=== PATIENT | male | born 1955 | race Caucasian/White ===

== ENCOUNTER → 2020-05-03 | Outpatient (CLI) | payer OTHER ==
[~2020-05-03] MED LIST: AMBEREN PO; ASPIRIN325 PO; AVELOX400 MG PO; FISH OIL 1,0001 EAC5 PO; FISHOIL PO; FLEXERIL PO; GLUCOSAMINE &1 EAC1 PO; GLUCOSE4 GM PO; IBUPROFEN 200200 M1 PO; MOBIC15 MG PO; MUCINEX600 MG PO; MULTIVITAMINS PO; NORCO 5-325 TA1 EACH PO; TURMERIC500 M2 PO; TYLENOL EX-STR500 M2 PO; ZPAK; ZYRTEC10 M4 PO
== END ==
LOC: MRI 07:14
PROVIDERS: ATTEND Family Medicine
DX: M47.816 Spondylosis without myelopathy or radiculopathy, lumbar region (principal); M51.26 Other intervertebral disc displacement, lumbar region; M54.9 Dorsalgia, unspecified; N28.1 Cyst of kidney, acquired

== ENCOUNTER → 2020-05-12 | Outpatient (CLI) | payer OTHER ==
[~2020-05-12] VITALS: Ht 188 cm; Wt 116.1 kg
--- NOTE | ~2020-05-12 | HPC ---
[facility] [address] [place] [address] PAIN MANAGEMENT CONSULTATION Name: TENA HOLLAND Room #: REG [facility]#: [id number] Admission: 05/12/20 Attend Phys: Lay Guadarrama MD Discharge: Date of : 55 Report #: [id number] THIS REPORT FOR: cc: Casey Valentine MD,Lay Daugherty MD, MD ~ CC: Lay Valentine DATE OF SERVICE: 05/12/2020 PRIMARY CARE PHYSICIAN: Casey Valentine MD CHIEF COMPLAINT: "Acute pain in the lower right back and sometimes tingling down in my right leg." HISTORY: The patient is a 64-year-old gentleman who has been referred to the pain clinic for evaluation of leg and back discomfort. He noted onset of this discomfort in February. He rates the pain as 3 today. It can average anywhere from 1-5 depending on the level of activity. Standing for greater than 20 minutes can be problematic. He notes that the pain is better when he uses ice on it. Reclining decreases the pain as well. He describes it as continuous, aching pain. He has not had back surgery. He denies any bowel or bladder changes. Pain involves the right posterior buttocks and radiates down the lateral portion of his right thigh. ALLERGIES: PENICILLIN. CURRENT MEDICATIONS: Fish oil 1000 mg, turmeric 800 mg, glucosamine 1500 mg, aspirin 325, meloxicam 15 mg, cetirizine. PAST SURGICAL HISTORY: Three knee surgeries 35-45 years ago, right ankle surgery, 50 years ago, nose surgery 45 years ago. SOCIAL HISTORY: He works in [employer]. He is on ____ for the last 2 months. REVIEW OF SYSTEMS: Generally good health. LABORATORY DATA: 1. MRI of the lumbar spine dated 05/03/2020, L2-L3, there is generalized disk bulge with severe hypertrophic posterior facet degenerative change and ligamentum flavum hypertrophy. The AP dimensions of the thecal sac measures 9 mm consistent with mild spinal stenosis. The disk bulge is slightly more eccentric toward the left. No significant neural foraminal narrowing. 2. L3-L4, there is a generalized disk bulge with severe hypertrophic posterior facet degenerative changes and ligamentum flavum hypertrophy. AP diameter of [address] [address] PAIN MANAGEMENT CONSULTATION Name: TENA HOLLAND Room #: REG BAILEE Lacey#: [id number] Admission: 05/12/20 Attend Phys: Lay Guadarrama MD Discharge: Date of : 55 Report #: [id number] the thecal sac is narrowed to 5 mm consistent with very severe spinal canal stenosis. The bulging is slightly more eccentric toward the left. 3. L4-L5, there is a generalized disk bulge with severe hypertrophic facet degenerative changes and ligamentum flavum hypertrophy. The AP dimension of the thecal sac is narrowed to 5-6 mm consistent with very severe central canal stenosis. 4. There is a focal left paracentral disk protrusion which results in severe left lateral recess narrowing and mass effect on the descending left L5 nerve root sleeve. The bulge is eccentric toward the left. There is severe left neural foraminal narrowing. 5. L5-S1, there is a broad-based central disk protrusion with focal annular tear. Moderate posterior facet degenerative changes. No significant central spinal stenosis. PAIN CLINIC ASSESSMENT AND PQRS: 1. History of osteoarthritis involving the wrists, knees, ankles and spine. The patient is not being treated for rheumatoid arthritis. 2. Height 6 feet 2 inches, weight 256 pounds, BMI is 32.9. 3. Vital signs: Blood pressure 156/100, pulse is 90, respiratory rate 15, room air saturation is 96%. 4. Pain intensity 11/17. 5. Fall risk. The patient fell playing with grandchildren in March, had x-ray, no fracture. 6. The patient is not on a blood thinning medication. 7. Hypertension. The patient is not being treated for hypertension. 8. Opioids greater than 6 weeks. The patient receives medication from primary. 9. Risk assessment tool, low for opioid use. 10. Functional assessment tool, 46/70. 11. Recreational drug use. The patient denies. 12. Alcohol. The patient occasionally drinks alcoholic beverages. PHYSICAL EXAMINATION: GENERAL: The patient is a well-developed, well-nourished white male. He is alert and oriented x 3. His affect is appropriate. Speech is fluent. HEENT: Normocephalic, atraumatic. Extraocular eye muscles intact. Sclerae nonicteric. Mucous membranes are moist. NECK: Without adenopathy or JVD. HEART: Regular rate. ABDOMEN: Nontender. EXTREMITIES: Upper extremity muscle strength judged to be 5/5 for the major muscle groups in the upper extremity. The patient is wearing a facial covering. The patient has pain and discomfort in lower portion of his back with pain that is radiating down in the L4-L5 dermatomal distribution on the right. IMPRESSION: Lumbar radiculopathy, L4-L5 dermatomal distribution on the right. [facility] [address] [place] [address] PAIN MANAGEMENT CONSULTATION Name: TENA HOLLAND Room #: REG BAILEE Lacey#: [id number] Admission: 05/12/20 Attend Phys: Lay Guadarrama MD Discharge: Date of : 55 Report #: [id number] RECOMMENDATIONS: We discussed risks and benefits of an epidural steroid injection. A model was used to indicate the area of probable pathology. A video indicating of the patient of the pathophysiology of spinal stenosis was shown. The patient states that he understands. We discussed the risks and benefits of an epidural steroid injection. They include but are not limited to infection, worsening pain, no improvement in pain, nerve damage, bleeding, spinal headache. We also discussed the COVID-19 pandemic. The possibility exists that if he were to become infected, he might have a more difficult time with it, given that steroids use can decrease the immune response. The patient elects to proceed. PROCEDURE NOTE: The patient was taken to the procedure area. He was then assisted in getting on the examination table. His back was sterilely prepped with a Betadine solution. At the L4-L5 interspace 0.25% bupivacaine was infiltrated using a 25-gauge needle to anesthetize the area. A total of 80 mg Depo-Medrol was injected after a 17-gauge Tuohy with loss of resistance technique was used to gain access at L4-L5. The patient tolerated the procedure well. There were no complications. He remained in the pain clinic for an appropriate amount of time. He will follow up in the future as needed. We would like to thank you for letting us participate in his care. A total of 13 seconds fluoro time was used. The patient's pain decreased to 0-1 at the time of discharge. By: [id number] Lay Guadarrama MD /[place]
[2020-05-12 12:46] VITALS: BP 156/100
--- NOTE | 2020-05-12 12:58 | NUR ---
Pain Clinic Assessment: 1. History of Osteoarthritis: WRIST KNEES ANKLES SPINE History of Rheumatoid Arthritis: DENIES 2. Height: 6 ft. 2 in. 188.0 cm. Weight: 256.0 lb. oz. 116.121 kg. Patient's BMI: 32.9 3. Vital Signs: BP: 156/100 Pulse: 90 Resp: 15 Temp: 02 Sat: 96 ECG Mon: 4. Pain Intensity: 3 5. Fall Risk: Dizziness: N Needs help standing or walking: N Fallen in the last 3 months: N Fall risk comments: FELL PLAYING WITH [employer] [employer] IN MARCH. HAD XRAY. NO FX 6. Patient on Blood Thinner: None 7. History of Hypertension: N 8. Opioid Therapy greater than 6 weeks: N Opiate Contract Signed: 9. Risk Assessment Tool Provided: 0 LOW 10. Functional Assessment Tool: 11. Recreational Drug Use: Never Drug Type: Tobacco Use: Never Smoker Tobacco Type: Amount or Packs/day: How Many Years: Alcohol Use: Yes Frequency: Weekly Quant:
== END | disposition home or self-care (01) ==
LOC: PAIN 06:58
PROVIDERS: ATTEND Anesthesiology Pain Medicine
DX: M54.16 Radiculopathy, lumbar region (principal); M19.90 Unspecified osteoarthritis, unspecified site; I10 Essential (primary) hypertension; Z79.899 Other long term (current) drug therapy; Z98.890 Other specified postprocedural states; Z79.82 Long term (current) use of aspirin; Z72.89 Other problems related to lifestyle

== ENCOUNTER → 2020-07-09 | Outpatient (CLI) | payer OTHER ==
[~2020-07-09] VITALS: Ht 188 cm; Wt 118.2 kg
[2020-07-09 13:02] VITALS: BP 138/88
--- NOTE | 2020-07-09 13:20 | NUR ---
Pain Clinic Assessment: 1. History of Osteoarthritis: WRIST KNEES ANKLES SPINE History of Rheumatoid Arthritis: DENIES 2. Height: 6 ft. 2 in. 188.0 cm. Weight: 260.6 lb. oz. 118.208 kg. Patient's BMI: 33.4 3. Vital Signs: BP: 138/88 Pulse: 86 Resp: 16 Temp: 02 Sat: 100 ECG Mon: 4. Pain Intensity: 3 5. Fall Risk: Dizziness: N Needs help standing or walking: N Fallen in the last 3 months: N Fall risk comments: FELL PLAYING WITH [employer] IN MARCH. HAD XRAY. NO FX 6. Patient on Blood Thinner: None 7. History of Hypertension: N 8. Opioid Therapy greater than 6 weeks: N Opiate Contract Signed: 9. Risk Assessment Tool Provided: 0 LOW 10. Functional Assessment Tool: 11. Recreational Drug Use: Never Drug Type: Tobacco Use: Never Smoker Tobacco Type: Amount or Packs/day: How Many Years: Alcohol Use: Yes Frequency: Quant:
== END | disposition home or self-care (01) ==
LOC: PAIN 07:09
PROVIDERS: ATTEND Anesthesiology Pain Medicine
DX: M54.16 Radiculopathy, lumbar region (principal); G89.29 Other chronic pain; Z79.899 Other long term (current) drug therapy; Z88.0 Allergy status to penicillin

== ENCOUNTER → 2020-10-22 | Outpatient (CLI) | payer OTHER ==
[~2020-10-22] VITALS: Ht 195.6 cm; Wt 118.8 kg
[2020-10-22 12:52] VITALS: BP 163/103
--- NOTE | 2020-10-22 12:58 | NUR ---
Pain Clinic Assessment: 1. History of Osteoarthritis: WRIST KNEES ANKLES SPINE History of Rheumatoid Arthritis: DENIES 2. Height: 6 ft. 5 in. 195.6 cm. Weight: 262.0 lb. oz. 118.843 kg. Patient's BMI: 31.1 3. Vital Signs: BP: 163/103 Pulse: 99 Resp: 18 Temp: 02 Sat: 94 ECG Mon: 4. Pain Intensity: 3 5. Fall Risk: Dizziness: N Needs help standing or walking: N Fallen in the last 3 months: N Fall risk comments: FELL PLAYING WITH [employer] IN MARCH. HAD XRAY. NO FX 6. Patient on Blood Thinner: None 7. History of Hypertension: N 8. Opioid Therapy greater than 6 weeks: N Opiate Contract Signed: 9. Risk Assessment Tool Provided: 0 LOW 10. Functional Assessment Tool: 11. Recreational Drug Use: Never Drug Type: Tobacco Use: Never Smoker Tobacco Type: Amount or Packs/day: How Many Years: Alcohol Use: Yes Frequency: Weekly Quant: 2-3/BEER WEEK
== END | disposition home or self-care (01) ==
LOC: PAIN 12:09
PROVIDERS: ATTEND Anesthesiology Pain Medicine
DX: M47.26 Other spondylosis with radiculopathy, lumbar region (principal); G89.29 Other chronic pain; M19.90 Unspecified osteoarthritis, unspecified site; Z98.890 Other specified postprocedural states; Z79.899 Other long term (current) drug therapy; Z88.0 Allergy status to penicillin; Z88.8 Allergy status to other drugs, medicaments and biological substances

== ENCOUNTER → 2020-12-16 | Outpatient (CLI) | payer OTHER ==
[~2020-12-16] MED LIST changes: +BYSTOLIC 5 MG5 MG PO; +GLUCOSAMINE CH1 EAC1 PO; +HYDROCODON-ACE1 EAC7 PO; +MELOXICAM15 MG PO; +MULTI VITAMIN1 EACH PO; +NEURONTIN300 MG PO
[2020-12-16 08:57] LABS: URINE BILIRUBIN NEGATIVE (Negative); URINE BLOOD NEGATIVE (Negative); URINE CLARITY CLEAR; URINE COLOR YELLOW; URINE GLUCOSE-RANDOM* 3+ (Negative); URINE KETONES NEGATIVE (Negative); URINE LEUKOCYTES-REFLEX NEGATIVE (Negative); URINE NITRITE-REFLEX NEGATIVE (Negative); URINE PROTEIN (DIPSTICK) NEGATIVE (Negative); URINE UROBILINOGEN 0.2 E.U./dl (0.2-1.0)
[2020-12-16 08:58] LABS: HEMATOCRIT 47.3 % (42.0-52.0); MCH 29.7 pg (26.0-34.0); MCHC 33.9 g/dL (28.0-37.0); MCV 87.5 fL (80.0-100.0); RBC 5.4 mil/uL (4.50-6.00); RDW 13.8 % (10.5-14.5); WBC 9.8 thou/uL (4.0-11.0)
[2020-12-16 09:18] LABS: APTT 28.1 Seconds (24.5-32.8); INR 0.98; PROTIME 10.7 Seconds (9.3-11.4)
[2020-12-16 10:48] LABS: ALBUMIN 3.7 g/dL (3.4-5.0); CALCIUM 8.8 mg/dL (8.5-10.1); CREATININE 1.3 mg/dL (0.7-1.3); POTASSIUM 4.1 mmol/L (3.5-5.1); TOTAL BILIRUBIN 0.6 mg/dL (0.2-1.0); TOTAL PROTEIN 7.4 g/dL (6.4-8.2)
--- NOTE | 2020-12-16 15:29 | EKG ---
[address] [address] ELECTROCARDIOGRAM REPORT Name: MAURILIO HOLLAND [id number] Admission: 12/16/20 Attend Phys: Maurilio Li, Discharge: Date of : 55 Report #: [id number] [facility] Test Date: 2020-12-16 Test Time: 08:54:13 Pat Name: MAURILIO HOLLAND Department: Room: Gender: M Road Oiler: DENNIS : 1955 Requested By: Maurilio Li Order Number: [id number] MD: Gabe Martinez Measurements Intervals [place] Rate: 69 P: 36 WV: 166 QRS: 45 QRSD: 115 T: 50 QT: 410 QTc: 440 Interpretive Statements Sinus rhythm Nonspecific intraventricular conduction delay Compared to ECG 04/14/2015 21:14:38 Intraventricular conduction delay now present Sinus tachycardia no longer present Electronically Signed On 12-16-2020 15:29:45 CDT by Gabe Martinez [email or web address] <ELECTRONICALLY SIGNED> By: Gabe Martinez MD, [facility] 12/16/20 [id number] Gabe Martinez MD, FACDoron /EPI
== END ==
LOC: LAB 08:13
PROVIDERS: ATTEND Specialist
DX: Z01.812 Encounter for preprocedural laboratory examination (principal); Z20.822 Contact with and (suspected) exposure to COVID-19

== ENCOUNTER 2020-12-20 13:57 | Inpatient (IN) | payer OTHER ==
[~2020-12-20] VITALS: Ht 195.6 cm; Wt 115.2 kg
[2020-12-20 14:55] VITALS: BP 153/93
[2020-12-20 20:32] VITALS: BP 130/93
--- NOTE | 2020-12-21 03:00 | NUR ---
PT ADMITTED TO UNIT APPROX 1935. PT ORIENTED TO UNIT AND ROOM, ADMISSION PACKET PROVIDED. PT AOX4, DROWSY. PT REPORTS 4-5/10 BACK PAIN. PT RECEIVING PRN PO APAP Q4HR PRN, EXPRESSES RELUCTANCE IN TAKING PRN PO OXYCODONE Q4HR AND PRN IV MORPHINE Q4HR. PT DENIES SOB WHILE ON 2L O2 VIA NC. PT TOLERATING PO INTAKE OF FLUIDS AND REGULAR DIET WITHOUT ISSUE. PT REPORTS NAUSEA, WITHOUT EMESIS. ONCALL LOOM TECHNICIAN NOTIFIED, RECEIVED ORDERS FOR 4MG PRN IV ZOFRAN Q4HR. PT VOIDING PER URINAL. PT RESTING IN BED THROUGHOUT SHIFT, FREQUENT REPOSITIONING ENCOURAGED. PT NOTED TO SHIFT INDEPENDENTLY WHILE IN BED. +1 EDEMA NOTED IN BLE. PT DENIES NUMBNESS AND TINGLING, SENSATION INTACT, AND CAPILLARY REFILL LESS THAN 3SEC IN ALL EXTREMITIES. SURGICAL DRESSING TO BACK INTACT, NO DRAINAGE NOTED TO DRESSING , RACHEL DRAIN PATENT WITH BLOODY DRAINAGE. PT ENCOURAGED TO NOTIFY STAFF FOR ALL NEEDS, CALL LIGHT WITHIN REACH, BED ALARM ON, BED LOCKED IN LOWEST POSITION, FREQUENT MONITORING WILL CONTINUE.
[2020-12-21 04:22] VITALS: BP 133/84
[2020-12-21 09:02] VITALS: BP 129/80
--- NOTE | 2020-12-21 12:45 | NUR ---
ASSESSMENT: CM REVIEWED CHART AND MET WITH PATIENT AT THE BEDSIDE. PT IS ALERT AND ORIENTED X4. PT IS S/P LUMBAR LAMINECTOMY. PT REPORTS HE LIVES IN A HOUSE WITH HIS . PT HAS ONE STEP TO ENTER THE HOME AND NO STEPS HE HAS TO USE ONCE INSIDE. PT REPORTS THAT HE HAS A BASEMENT BUT DOES NOT GO DOWN THERE. PT REPORTS HE IS FULLY INDEPENDENT WITH ADLS AND AMBULATION. PT HAS NO HX OF HOME HEALTH OR SNF. PT REPORTS HAVING A GRAB BAR IN THE SHOWER. PT REPORTS HE HAS NO DME. PHYSICAL THERAPY WORKED WITH PATIENT AND HE WAS ABLE TO WALK WITHOUT A DEVICE AND PLANS TO RETURN HOME. PT REPORTS NO CURRENT NEEDS FROM CM AT THIS TIME.
[2020-12-21 15:40] VITALS: BP 97/60
[2020-12-21 19:47] VITALS: BP 103/67
--- NOTE | 2020-12-22 04:11 | NUR ---
RECEIVED CARE OF THIS PATIENT AT 1900. DRESSING ON BACK D/I. HAS RACHEL DRAIN WTIH SANGUINEOUS FLUID. C/O PAIN, MED GIVEN. UP AD CHANTE. SLEPT OFF AND ON DURING NIGHT.
[2020-12-22 08:00] VITALS: BP 105/72
[2020-12-22 11:07] VITALS: BP 105/72
--- NOTE | 2020-12-22 11:54 | NUR ---
ASSUMED PT CARE AROUND 0700. PT ALERT X ORIENTED X 4. ON ROOM AIR.. STAND BY ASST. IV RT WRIST SALINE LOCKED. PT IN THE ROOM. PT AMBULATED IN THE HALLWAY WITH THE RN. PAIN CONTROLLED BY PAIN MEDS. DISCHARGE ORDER SEEN, BUT RN DIDN'T SEE ANY ORDER OR NOTES REGARDING RACHEL DRAIN REMOVAL. RN CALLED LEONIDES GARCIA OFFICE AND ALSO MESSAGED 'S CLINICAL CARE LEADER TO VERIFY ON THAT. WILL CONT TO MONITOR.
--- NOTE | 2020-12-22 15:34 | NUR ---
on-going assessment: CM REVIEWED CHART. PT HAS ORDERS TO DISCHARGE HOME. PT REPORTS NO NEED FOR HOME HEALTH AND ALSO DECLINES THE NEED FOR IT STATING SHE WILL BE WITH PT AT ALL TIMES. PT DENIES ANY NEEDS FROM CM. CASE CLOSED. DECLINING HOME HEALTH.
== END 2020-12-22 15:29 | disposition home or self-care (01) | DRG 520 ==
LOC: OR 13:57 → PRE 14:40 → TBA 15:52 → PRE 16:06 → OR 16:53 → PRE 16:56 → OR 19:42 → 4S 19:43
PROVIDERS: ADMIT Specialist; ATTEND Specialist
DX: M48.061 Spinal stenosis, lumbar region without neurogenic claudication (principal); Z88.1 Allergy status to other antibiotic agents; Z88.0 Allergy status to penicillin; Z88.8 Allergy status to other drugs, medicaments and biological substances
CPT/HCPCS: 10102; 50010; 50101; 50402; 51751; 55340; 56524; 56525; 56532; 57103; 58457; 58567; 62110; 62900; 65131; 70005

== ENCOUNTER 2021-03-18 22:19 | Inpatient (IN) | payer OTHER ==
[~2021-03-18] VITALS: Ht 195.6 cm; Wt 118.4 kg
[2021-03-18 22:23] VITALS: BP 196/126
[2021-03-18] MEDS ORDERED: METOPROLOL SUCC50 MG PO ×2 (22:34)
[2021-03-18 23:01] VITALS: BP 196/126
[2021-03-18 23:01] LABS: ABSOLUTE NEUTROPHILS 5.6 thou/uL (1.4-8.2); BASOPHILS 0.1 % (0.0-2.0); EOSINOPHILS 2.5 % (0.0-3.0); HEMATOCRIT 46.9 % (42.0-52.0); HEMOGLOBIN 15.5 gm/dL (14.0-18.0); LYMPHOCYTES 39.5 % (24.0-44.0); MCH 28.5 pg (26.0-34.0); MCV 86.3 fL (80.0-100.0); MONOCYTES 9.4 % (1.0-8.0); PLATELET COUNT 332 thou/uL (150-400); POLYS 48.5 % (36.0-66.0); RBC 5.44 mil/uL (4.50-6.00); RDW 14.1 % (10.5-14.5); WBC 11.6 thou/uL (4.0-11.0)
[2021-03-18 23:03] LABS: ANION GAP 10 mmol/L (7-16); BUN 18 mg/dL (7-18); CALCIUM 8.9 mg/dL (8.5-10.1); CHLORIDE 99 mmol/L (98-107); CO2 30 mmol/L (21-32); CREATININE 1.2 mg/dL (0.7-1.3); GLUCOSE 122 mg/dL (74-106); POTASSIUM 3.6 mmol/L (3.5-5.1); SODIUM 139 mmol/L (136-145)
[2021-03-18 23:12] LABS: APTT 28.2 Seconds (24.5-32.8); INR 0.95; PROTIME 10.4 Seconds (10.5-12.1)
[2021-03-18 23:13] LABS: ALBUMIN 3.6 g/dL (3.4-5.0); SGOT 18 U/L (15-37); SGPT 26 U/L (30-65); TOTAL BILIRUBIN 0.4 mg/dL (0.2-1.0); TOTAL PROTEIN 7.6 g/dL (6.4-8.2); TROPONIN-I <0.06 ng/mL (<0.06)
[2021-03-19] VITALS (36 sets, daily range): BP systolic 92–135; BP diastolic 49–90
--- NOTE | 2021-03-19 08:13 | NUR ---
Patient here from bean sprout laborer at 0150. Pt awake and alert. Right groin sheath in place. Right radial closure device in place. Good pulses. Heart rate and rhythm stable throughout this shift. Blood pressures stable. NO chest pain/pressure. Right groin sheath pulled, appropriate pressure held. Groin stable, no hematoma. Patient remians on bedrest until 0830. Right radial pressure device pressure reduced as ordered. Device off at 0630. Right wrist site stable. No hematoma. No complains from the patient. See documentation on interventions for assesment details.
--- NOTE | 2021-03-19 08:22 | CATHLAB ---
[facility] [place] [address] [place] [address] INVASIVE PROCEDURE REPORT Name: TENA HOLLAND Room #: 240-P ADM IN M.R.#: [id number] Admission: 03/18/21 Attend Phys: Casey Valentine MD Discharge: Date of : 55 Report #: [id number] REPORT FOR: cc: Casey Valentine MD, Neal A. MD Park, Jin S. MD ~ APPROVED REPORT Study performed: 03/18/2021 22:57:50 Patient Details Patient Status: ED Room #: The patient is a 65 year-old male Event Personnel Reymundo So Astrobiologist, Vane Tomlinson RN RN, Gopi Santillan RT(R)(CV) [place] Nancy RTR, OTOLARYNGOLOGY NURSE Monitor Procedures Performed Art Access - R femoral artery* Art Access - R radial artery Left Heart Cath w/or w/o Coronaries [id number] [facility] CHUCKIE Revasc AMI Total/Sub Single CIRC C9606 AMIREVSING Hemostasis with Hemoband Indication STEMI (>0 to less than or equal to 6 hours), Chest pain Risk Factors Hypercholesterolemia, Hypertension Procedure Narrative The Right Groin^ was infiltrated with 1% Lidocaine subcutaneous anesthesia. A PINNACLE 6FR Sheath #[id number] sheath was inserted into the RFA. Coronary angiography was performed using coronary diagnostic catheters. The right coronary system was accessed and visualized with a JR4 catheter. The left coronary system was accessed and visualized with a 6FR JL5 #[id number] catheter. The left ventricle was accessed and visualized with a ANGLED PIGTAIL catheter. Left ventricular/Aortic Valve gradient assessed via catheter pullback. Left ventriculogram was performed in 30 degree projection. Pre-demployment femoral angiogram was performed . Closure device was deployed with a Fr VASC BAND L 27CM #[id number]. There was no hematoma. Intraoperative Conscious Sedation [facility] [address] [place] [address] INVASIVE PROCEDURE REPORT Name: TENA HOLLAND Room #: 240-P [facility] IN .#: [id number] Admission: 03/18/21 Attend Phys: Casey Valentine, Discharge: Date of : 55 Report #: [id number] No conscious sedation was used. Fluoro Time: 42.34 minutes Dose: DAP 125545.38 cGycm2 7196 mGy Contrast Type and Amount: Visipaque 465 ml Diagnostic Cath Left Main The left main artery is a large-caliber vessel, patent with no flow-limiting lesions. LAD The LAD is a moderate-sized caliber vessel, traverses the anterior wall and wraps around the apex. There is a mild to moderate stenosis in the proximal/mid segment, 30 to 40%. Diagonal 1 This is a moderate-sized caliber vessel, with mild disease proximally, 30%. This divides into 2 branches. Circumflex The left circumflex artery is a dominant vessel supplying the left PDA. The proximal segment is mildly ectatic. There is a severe stenosis at the proximal segment with calcifications, 95%. OM1 This vessel is not well visualized but appears to be occluded, originating at the site of the severe circumflex stenosis. There is a faint collateral to the distal segment. OM2 This is a moderate-sized caliber vessel, with severe occlusions at the proximal and mid segments, 80 to 90%. L PDA There is a patent vessel, with no flow-limiting lesions. Right Coronary The RCA is a small, nondominant vessel with severe distal occlusion. There are collaterals to the distal segment from the left coronary artery. Left Ventriculography The left ventricle is normal in size with Abnormal contractility. The left ventricular ejection fraction is estimated to be 35-40%. Left ventricular wall motion abnormalities are present. There is hypokinesis of the inferior wall. Hemodynamics The aortic pressure is 136/86 mmHg with a mean of 110 mmHg. The left ventricular pressure is 130/14 mmHg with a mean of mmHg. The left ventricular end diastolic pressure is 24 mmHg. PCI Technique Lesion Percutaneous coronary intervention was performed on the Second obtuse marginal branch segment. The lesion stenosis prior to intervention was 90% with DC 2 flow. A VISTA 6FR XB 4.5 #[id number] Guide Catheter was used to engage the ostium. A Luge Wire .014 x 182CM #[id number] Interventional Guidewire was used to cross the lesion. [facility] [address] [place] [address] INVASIVE PROCEDURE REPORT Name: TENA HOLLAND Room #: 240-P [facility] IN M.R.#: [id number] Admission: 03/18/21 Attend Phys: Casey Valentine, Discharge: Date of : 55 Report #: [id number] BALLOON DILATION A Balloon catheter TREK RX 2.25 X 12 #[id number] was inserted and inflated up to 10.00atm for 16seconds. Additional Inflation: 8.00atm for 17seconds. STENT DEPLOYMENT A drug-eluting stent RESOLUTE DIDIER RX 2.5 X 15 #[id number] was inserted and inflated up to 12.00atm for 15seconds. A second drug-eluting stent Resolute [place] RX 2.5 x 12 was inserted and inflated up to 14 rivera for 18 seconds at the ostial segment. Additional inflation: 16 rivera for 11 seconds was performed in the mid OM 2 stented area. Final angiography reveals 5 % stenosis with DC 3 flow. PCI Technique Lesion 2 Percutaneous Coronary Intervention was performed on the proximal circumflex artery segment. The lesion stenosis prior to intervention was 95% with DC 2 flow. A LAUNCHER 6FR JL5 #[id number] Guide Catheter was used to engage the ostium. A Luge Wire .014 x 182CM #[id number] Interventional Guidewire was used to cross the lesion. Balloon Dilation A Balloon catheter Euphora RX 1.5 x 12 #[id number] was inserted and inflated up to 14.00atm for 35seconds. Additional Inflation: 14.00atm for 12seconds. A second balloon catheter Euphora RX 2.0 x 12 was inserted and inflated up to 14 rivera for 15 seconds. Additional inflation: 14 rivera for 11 seconds. Additional inflation: 14 rivera for 8 seconds. The 6F JL5 guide catheter was exchanged for a 6F XB4.5 guide catheter. A third balloon catheter Euphora RX 2.5 x 15 was inserted and inflated up to 14 rivera for 12 seconds Additional inflation: 14 rivera for 13 seconds. A fourth balloon catheter Euphora RX 3.0 x 12 was inserted and inflated up to 14 rivera for 26 seconds. Additional inflation: 10 rivera for 10 seconds. Stent Deployment A drug-eluting stent RESOLUTE DIDIER RX 3.5 X 15 #[id number] was inserted and inflated up to 16.00atm for 23seconds. Post Stent Deployment Balloon Dilation A Balloon catheter TREK NC RX 3.5 X 12 #[id number] was inserted and inflated up to 18.00atm for 11seconds. Final angiography reveals 5 % stenosis with DC 3 flow. Comments [facility] [address] [place] [address] INVASIVE PROCEDURE REPORT Name: TENA HOLLAND Room #: 240-P [facility] IN [facility]#: [id number] Admission: 03/18/21 Attend Phys: Casey Valentine, Discharge: Date of : 55 Report #: [id number] The initial diagnostic cardiac catheterization was performed via the right femoral artery access. However, attempts at placing a 6 Italian guide catheter into the left coronary artery was difficult secondary to excessive tortuosity in the right iliac artery. Longer sheaths were used to provide support, but still unsuccessful in using a JL 5 and XB 4.0 guide catheters. Next we accessed the right radial artery for the angioplasty procedure. During the procedure, the patient developed hypotension, requiring atropine and Levophed. His rhythm remained stable in sinus. Towards the end of the angioplasty procedure, he remained stable and the Levophed was discontinued. Post angioplasty procedure, the patient remained hemodynamically stable with no further anginal episodes. Conclusion 1. Successful insertion of a 3.5 mm drug-eluting stent into the proximal segment of a dominant left circumflex artery. 2. Successful insertion of 2 drug-eluting stents into the ostial/proximal and mid segments of OM 2. 3. There is mild to moderate disease in the LAD. 4. The RCA is a small nondominant vessel, with severe occlusion. There are collaterals to the distal segment from the left coronary artery. 5. There is moderate segmental LV dysfunction. 6. Recommend dual antiplatelet therapy and aggressive risk factor management. <ELECTRONICALLY SIGNED> By: Reymundo So MD 03/19/21820 0 0 Reymundo So MD /INF
[2021-03-19 08:37] LABS: MCH 28.4 pg (26.0-34.0); MCHC 32.8 g/dL (28.0-37.0); MCV 86.6 fL (80.0-100.0); RBC 4.63 mil/uL (4.50-6.00); RDW 13.7 % (10.5-14.5); WBC 11.1 thou/uL (4.0-11.0)
[2021-03-19 08:41] LABS: HEMOGLOBIN 13.1 gm/dL (14.0-18.0)
[2021-03-19 08:49] LABS: CALCIUM 8.2 mg/dL (8.5-10.1); CREATININE 1.1 mg/dL (0.7-1.3); POTASSIUM 4.2 mmol/L (3.5-5.1)
--- NOTE | 2021-03-19 09:50 | HC ---
[facility] [place] [address] CONSULTATION Name: TENA HOLLAND Room #: [address] [place] [address] IN M.R.#: [id number] Admission: 03/18/21 Attend Phys: Casey Valentine MD Discharge: Date of : 55 Report #: [id number] THIS REPORT FOR: cc: Casey Valentine MD, Neal A. MD Park, Jin S. MD ~ DATE OF SERVICE: 03/18/2021 CARDIOLOGY CONSULTATION CHIEF COMPLAINT: Chest pain. HISTORY OF PRESENT ILLNESS: This is a pleasant 65-year-old gentleman with a history of hypertension, edema, hypercholesterolemia and herniated disk, presenting with acute onset of chest pain. He had gone to his daughter's house and drank some beer. He developed substernal chest discomfort radiating up to the left neck area. He denies any associated shortness of breath or diaphoresis. After about an hour, the patient decided to come to the ER for evaluation. EKG reveals ST elevation in the inferolateral leads. There is no history of fever, nausea, orthopnea, or diarrhea. PAST MEDICAL HISTORY: Hypertension, history of lumbar diskectomy in 12/2020. Negative for diabetes. ALLERGIES: PENICILLIN. MEDICATIONS: Include Toprol 50 mg daily. SOCIAL HISTORY: Denies tobacco use. FAMILY HISTORY: Negative for premature CAD. REVIEW OF SYSTEMS: See HPI. PHYSICAL EXAMINATION: VITAL SIGNS: Blood pressure is 180/70, heart rate is 80 beats per minute. GENERAL APPEARANCE: This is a well-developed, well-nourished male in no acute respiratory distress. HEENT: Normocephalic, atraumatic. Oral mucosa moist. NECK: Supple. LUNGS: Clear to auscultation. CARDIAC: Regular rate and rhythm, S1, S2 positive. ABDOMEN: Soft, nontender. EXTREMITIES: No cyanosis, trace edema. LABORATORY DATA: Pending. [facility] [address] [place] [address] CONSULTATION Name: TENA HOLLAND Room #: 240-P [facility] IN [facility]#: [id number] Admission: 03/18/21 Attend Phys: Casey Valentine MD Discharge: Date of : 55 Report #: [id number] ECG reveals sinus rhythm with a [address] elevation in II, III, aVF, V5, V6 with ST reciprocal changes in V1 and V2. ASSESSMENT AND PLAN: 1. Acute inferolateral myocardial infarction. The patient was treated with aspirin, Effient, and heparin in the ER. He will be taken emergently to the cardiac tanbark laborer. 2. Hypertension, we will resume beta lasha therapy. 3. Hypercholesterolemia, we will need to initiate statin therapy. 4. Edema, conservative therapy for now. <ELECTRONICALLY SIGNED> By: Reymundo So MD 03/19/21 0950 2158 0058 Reymundo So MD /nt
--- NOTE | 2021-03-19 10:55 | 2DMMODE ---
[facility] [place] [address] 2 D/M-MODE ECHOCARDIOGRAM Name: TENA HOLLAND Room #: 240-P ADM IN M.R.#: [id number] Admission: 03/18/21 Attend Phys: Casey Valentine MD Discharge: Date of : 55 Report #: [id number] THIS REPORT FOR: cc: Casey Valentine MD, Neal A. MD Park, Jin S. MD ~ APPROVED REPORT Study performed: 03/19/2021 09:57:31 EXAM: Comprehensive 2D, Doppler, and color-flow Echocardiogram Patient Location: ICU Room #: 2 Status: routine BSA: 2.58 HR: 61 bpm BP: 101/56 mmHg Rhythm: NSR Other Information Study Quality: Adequate Technically limited study due to obesity. Indications Chest pain, SD, status post PCI. 2D Dimensions RVDd: 36.01 mm IVSd: 13.42 (7-11mm) LVOT Diam: 25.48 (18-24mm) LVDd: 52.08 mm PWd: 9.46 (7-11mm) Ascending Ao: 42.31 (22-36mm) LVDs: 44.18 (25-40mm) Left Atrium: 32.39 (27-40mm) Aortic Root: 44.54 mm Volumes Left Atrial Volume (Systole) Single Plane 4CH: 26.23 mL Single Plane 2CH: 46.33 mL LA ESV Index: 16.00 mL/m2 Aortic Valve AoV Peak Carroll.: 0.87 m/s AO Peak Gr.: 3.06 mmHg LVOT Max P.81 mmHg LVOT Max V: 0.84 m/s [facility] [address] [place] [address] 2 D/M-MODE ECHOCARDIOGRAM Name: TENA HOLLAND Room #: 240-P [facility] IN [facility]#: [id number] Admission: 03/18/21 Attend Phys: Casey Valentine, Discharge: Date of : 55 Report #: [id number] GABRIELLE Vmax: 4.88 cm2 Mitral Valve E/A Ratio: 1.3 MV Decel. Time: 166.32 ms MV E Max Carroll.: 0.66 m/s MV A Carroll.: 0.52 m/s MV PHT: 48.23 ms IVRT: 86.51 ms Pulmonary Vein P Vein S: 0.34 m/s P Vein A: 0.30 m/s P Vein D: 0.38 m/s P Vein A Dur.: 166.1 msec P Vein S/D Ratio: 0.89 Tricuspid Valve TR Peak Carroll.: 1.70 m/s RAP Estimate: 5.00 mmHg TR Peak Gr.: 12.00 mmHg PA Pressure: 17.00 mmHg Left Ventricle The left ventricle is normal size. Regional wall motion abnormalities are noted. Mild septal hypertrophy is present. Left ventricular systolic function is mild to moderately decreased. LVEF is 40-45%. Right Ventricle The right ventricle is normal size. The right ventricular systolic function is normal. Atria The left atrium size is normal. The right atrium size is normal. Aortic Valve The aortic valve is normal in structure. Mild aortic regurgitation. There is no aortic valvular stenosis. Mitral Valve The mitral valve is normal in structure. Mild mitral regurgitation. No evidence of mitral valve stenosis. Tricuspid Valve The tricuspid valve is normal in structure. Trace tricuspid regurgitation. Estiamted PAP < 20mmHg. [facility] [place] [address] 2 D/M-MODE ECHOCARDIOGRAM Name: AMALIATENA Edmonds Room #: 240-P [facility] IN .R.#: [id number] Admission: 03/18/21 Attend Phys: Casey Valentine, Discharge: Date of : 55 Report #: [id number] Pulmonic Valve The pulmonary valve is normal in structure. Trace pulmonic regurgitation. Great Vessels The sinuses are dilated at Ascending aorta is dilated. IVC is normal in size and collapses >50% with inspiration. Pericardium There is no pericardial effusion. <Conclusion> The left ventricle is normal size. Mild septal hypertrophy is present. Left ventricular systolic function is mild to moderately decreased. LVEF is 40-45%. The right ventricle is normal size. The left atrium size is normal. Mild aortic regurgitation. Mild mitral regurgitation. Trace tricuspid regurgitation. <ELECTRONICALLY SIGNED> By: Reymundo So MD 03/19/21 1054 1054 1054 Reymundo So MD /INF
--- NOTE | 2021-03-19 10:59 | EKG ---
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
--- NOTE | 2021-03-19 11:02 | EKG ---
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 : 1955 Requested By: Reymundo So Order Number: [id number] MD: Reymundo So Measurements Intervals [place] Rate: 71 P: 46 NE: 171 QRS: 70 QRSD: 112 T: 64 QT: 428 QTc: 466 Interpretive Statements Sinus rhythm Ventricular premature complex Borderline intraventricular conduction delay Compared to ECG 12/16/2020 08:54:13 Ventricular premature complex(es) now present Electronically Signed On 03-19-2021 11:02:08 CDT by Reymundo So [email or web address] <ELECTRONICALLY SIGNED> By: Reymundo So MD 03/19/21 1102 0255 0255 Reymundo So MD /NILS
--- NOTE | 2021-03-19 17:16 | NUR ---
PATIENT TRANSFERRED TO ROOM 219 AT 1700. PATIENT'S CHART AND BELONGINGS ACCOUNTED FOR AND TAKEN WITH PATIENT AND PATIENT'S WAS PRESENT DURING TRANSFER.
--- NOTE | 2021-03-19 18:12 | NUR ---
PT TRANSFERED TO ROOM 219 FROM THE ICU. ORIENTED TO ROOM AND BEDSPACE. PT FAMILY INTO VISIT - AT THE BEDSIDE. MEENA DIET AND FLUIDS. NO CO'S OF PAIN OR NASUEA. APPEARS TO BE COMFORTABLE AT THE PRESENT TIME.
[2021-03-20 00:05] VITALS: BP 147/80
[2021-03-20 04:37] VITALS: BP 128/84
[2021-03-20 08:13] VITALS: BP 116/57
--- NOTE | 2021-03-20 10:58 | EKG ---
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 : 1955 Requested By: Reymundo So Order Number: [id number] MD: Reymundo So Measurements Intervals [place] Rate: 67 P: 27 MS: 166 QRS: -10 QRSD: 114 T: -55 QT: 457 QTc: 483 Interpretive Statements Sinus rhythm Borderline intraventricular conduction delay Nonspecific T abnormalities, inferior leads Borderline prolonged QT interval Compared to ECG 03/19/2021 09:32:06 T-wave abnormality now present Electronically Signed On 03-20-2021 10:58:00 CDT by Reymundo So [email or web address] <ELECTRONICALLY SIGNED> By: Reymundo So MD 03/20/21 1058 0801 08 MD RAJI Sotelo
[2021-03-20 11:01] VITALS: BP 121/77
--- NOTE | 2021-03-20 11:02 | EKG ---
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 : 1955 Requested By: Michael Jacques Order Number: [id number] MD: Reymundo So Measurements Intervals [place] Rate: 84 P: 38 WV: 156 QRS: 74 QRSD: 121 T: 81 QT: 393 QTc: 465 Interpretive Statements Sinus rhythm Nonspecific intraventricular conduction delay Inferoposterior infarct, acute (LCx) Lateral infarct, acute ST depression V1-V3, suggest recording posterior leads Compared to ECG 12/16/2020 08:54:13 Myocardial infarct finding now present ST (T wave) deviation now present Electronically Signed On 03-20-2021 11:01:53 CDT by Reymundo So [email or web address] <ELECTRONICALLY SIGNED> By: Reymundo So MD 03/20/21 1101 2224 2224 Reymundo So MD /EPI
[2021-03-20 15:55] VITALS: BP 111/74
--- NOTE | 2021-03-20 17:42 | NUR ---
ASSESSMENT CHARTED -MEDS PER [facility] ROBLEDO DIET AND FLUIDS. UP AD CHANTE ON THE UNIT - WALKING IN THE HALLS. NO CO'S OF PAIN OR NASUEA. ULTRASOUND COMPLETED THIS AM - NO EVIDIENCE OF HEAMATOMA IN R GROIN. AT THE BEDSIDE. NO CO'S AT THE PRESENT TIME.
[2021-03-20 20:50] VITALS: BP 132/86
[2021-03-21 03:15] LABS: HEMATOCRIT 39.2 % (42.0-52.0); HEMOGLOBIN 13.2 gm/dL (14.0-18.0); MCH 28.9 pg (26.0-34.0); MCHC 33.6 g/dL (28.0-37.0); MCV 85.9 fL (80.0-100.0); RBC 4.56 mil/uL (4.50-6.00); RDW 13.9 % (10.5-14.5); WBC 10.1 thou/uL (4.0-11.0)
[2021-03-21 03:25] LABS: CALCIUM 8.4 mg/dL (8.5-10.1); CREATININE 1.1 mg/dL (0.7-1.3); POTASSIUM 3.8 mmol/L (3.5-5.1)
[2021-03-21 04:21] VITALS: BP 141/80
[2021-03-21 08:00] VITALS: BP 120/75
[2021-03-21] MEDS ORDERED: EFFIENT10 MG PO ×2 (08:28)
[2021-03-21] MEDS ORDERED: METOPROLOL SUCC25 M1 PO ×2 (08:28)
[2021-03-21] MEDS ORDERED: LIPITOR40 MG PO ×2 (08:28)
[2021-03-21 10:14] VITALS: BP 120/75
[2021-03-21 10:58] VITALS: BP 121/77
--- NOTE | 2021-03-21 12:08 | NUR ---
Discussed with bedside nurse, possible dc today, home no needs.
--- NOTE | 2021-03-21 12:09 | NUR ---
PT DISCHARGED TODAY AT 1100, ALL DISCHARGE INFORMATION WAS PROVIDED AND PT VERBALIZED UNDERSTANDING OF CARE AND FOLLOW UP. VITAL SIGNS WERE TAKEN PRIOR TO DISCHARGE AND WAS STABLE. ALL BELONGINGS WERE TAKEN WITH THE PT. NO BELONGINGS WERE LEFT AT THE TIME OF DISCHARGE
== END 2021-03-21 11:30 | disposition home or self-care (01) | DRG 246 ==
LOC: ER 22:19 → TBA 22:38 → 2N 22:38 → ICU 23:01 → 2N 03-19 17:17
PROVIDERS: Emergency Medicine; Internal Medicine Cardiovascular Disease; ADMIT Family Medicine; ATTEND Family Medicine
PROC: 027136Z Dilation of Coronary Artery, Two Arteries with Three Drug-eluting Intraluminal Devices, Percutaneous Approach (ICD-10-PCS; principal; 2021-03-18)
PROC: B211YZZ Fluoroscopy of Multiple Coronary Arteries using Other Contrast (ICD-10-PCS; principal; 2021-03-18)
PROC: 4A023N7 Measurement of Cardiac Sampling and Pressure, Left Heart, Percutaneous Approach (ICD-10-PCS; principal; 2021-03-18)
PROC: B215YZZ Fluoroscopy of Left Heart using Other Contrast (ICD-10-PCS; principal; 2021-03-18)
DX: I21.19 ST elevation (STEMI) myocardial infarction involving other coronary artery of inferior wall (principal); I50.21 Acute systolic (congestive) heart failure; I10 Essential (primary) hypertension; E78.00 Pure hypercholesterolemia, unspecified; I95.9 Hypotension, unspecified; I25.10 Atherosclerotic heart disease of native coronary artery without angina pectoris; E78.5 Hyperlipidemia, unspecified; Z79.82 Long term (current) use of aspirin; Z79.899 Other long term (current) drug therapy; Z88.1 Allergy status to other antibiotic agents; Z88.0 Allergy status to penicillin; Z88.8 Allergy status to other drugs, medicaments and biological substances
CPT/HCPCS: 10081; 10797

== ENCOUNTER → 2021-03-25 | Outpatient (CLI) | payer OTHER ==
[~2021-03-25] MED LIST changes: +EFFIENT10 MG PO; +LIPITOR40 MG PO; +METOPROLOL SUCC25 M1 PO; +METOPROLOL SUCC50 MG PO
== END ==
LOC: SJCVCIMAG 10:24
PROVIDERS: ATTEND Internal Medicine Cardiovascular Disease
DX: R10.31 Right lower quadrant pain (principal); R19.00 Intra-abdominal and pelvic swelling, mass and lump, unspecified site; Z79.899 Other long term (current) drug therapy

== ENCOUNTER → 2021-06-22 | Outpatient (CLI) | payer OTHER | LOC: SJCVCIMAG 07:31 | PROVIDERS: ATTEND Internal Medicine Cardiovascular Disease | DX: I08.8 Other rheumatic multiple valve diseases (principal); I25.10 Atherosclerotic heart disease of native coronary artery without angina pectoris; I10 Essential (primary) hypertension; E78.00 Pure hypercholesterolemia, unspecified; E78.5 Hyperlipidemia, unspecified; E11.9 Type 2 diabetes mellitus without complications; Z88.0 Allergy status to penicillin; Z88.8 Allergy status to other drugs, medicaments and biological substances; Z79.82 Long term (current) use of aspirin; Z79.899 Other long term (current) drug therapy; Z72.89 Other problems related to lifestyle ==

== ENCOUNTER → 2021-07-13 | Outpatient (CLI) | payer OTHER | LOC: MRI 09:33 | PROVIDERS: ATTEND Family Medicine | DX: M47.816 Spondylosis without myelopathy or radiculopathy, lumbar region (principal); M48.062 Spinal stenosis, lumbar region with neurogenic claudication; R29.898 Other symptoms and signs involving the musculoskeletal system ==